=== PATIENT | female | born 1945 | race Caucasian/White ===

== ENCOUNTER 2020-05-19 14:05 | Emergency (ER) | payer MEDICARE, OTHER, SELFPAY ==
[2020-05-19] VITALS (8 sets, daily range): BP systolic 178–215; BP diastolic 90–121; PULSE 58–79; RESP 18–24; TEMP 36.6; O2SAT 96–97; BMI 29.2
[2020-05-19 15:10] LABS: Alanine Aminotransferase 17 IU/L (<35); Albumin 4.3 g/dL (3.5-5.0); Albumin Globulin Ratio 1.3 (1.0-2.8); Alkaline Phosphatase 93 U/L (38-126); Aspartate Aminotransferase 26 IU/L (14-36); BUN Creatinine Ratio 18.1 (6-22); Bilirubin Total 0.3 mg/dL (0.2-1.3); Blood Urea Nitrogen 13 mg/dL (7-17); Calcium 9.4 mg/dL (8.4-10.2); Carbon Dioxide 31 mmol/L (22-32); Chloride 105 mmol/L (98-107); Creatine Kinase 89 U/L (30-135); Estimated Glomerular Filt Rate > 60.0 mL/min (>60); Globulin 3.2 g/dL (1.7-4.1); Glucose 91 mg/dL (80-110); HEMOLYSIS < 15 (0-50); Lipase 85 U/L (23-300); Potassium 3.7 mmol/L (3.4-5.1); Sodium 140 mmol/L (137-145); Total Protein 7.5 g/dL (6.3-8.2)
[2020-05-19 15:14] LABS: Add Manual Diff / Slide Review NO; Basophils Absolute Auto 0 /uL (0-100); Basophils Percent Auto 0.8 % (0-2); Eosinophils Absolute Auto 200 /uL (0-450); Eosinophils Percent Auto 3.4 % (2-4); Hematocrit 40.8 % (36-46); Hemoglobin 13.9 g/dL (12.0-16.0); Lymphocytes Absolute Auto 1600 /uL (1100-4500); Lymphocytes Percent Auto 28.7 % (25-40); Mean Corpuscular HGB Conc 34.1 % (30-36); Mean Corpuscular Hemoglobin 31.1 PG (26-34); Mean Corpuscular Volume 91.1 fL (80-100); Monocytes Absolute Auto 400 /uL (0-900); Monocytes Percent Auto 6.8 % (3-14); Neutrophils Absolute Auto 3400 /uL (1500-7000); Neutrophils Percent Auto 60.3 % (50-75); Platelet Count 299 X10^3/uL (150-400); Red Blood Cell Count 4.48 X10^6/uL (4.0-5.2); Red Cell Distribution Width 12.6 % (11.6-14.8); White Blood Cell Count 5.6 X10^3/uL (4.5-11.0)
[2020-05-19 15:21] LABS: Troponin I < 0.012 ng/mL (0.01-0.034)
--- NOTE | 2020-05-19 15:23 | ED.GENADULT ---
HPI - General Adult General Chief complaint: Weakness Stated complaint: FATIGUE Time Seen by Provider: 05/19/20 14:19 Source: patient Mode of arrival: Ambulatory Limitations: no limitations History of Present Illness HPI narrative: Patient is a 75-year-old female with a history of hypertension who is not currently on any hypertensive medicines here for evaluation of fatigue. She states that several months ago she was having episodes of fatigue and was seen by her primary doctor. She states that her primary doctor thought maybe she was having irregular heart rhythm so a Holter monitor was ordered. She is currently wearing a Holter monitor however she states that it was approximately 6 weeks after this was ordered before she received in the mail. She has 3 days left on the monitor before she is to return it. Also at this visit her primary doctor took her off of all of her blood pressure medications. She was on lisinopril and hydrochlorothiazide. Patient is unsure as to why he did this other than him stating that he wanted to see what her ?baseline heart status ?his off of these medications. She was not told to take her blood pressure at home but she has been doing so. Over the past several days and weeks her blood pressures have ranged anywhere from the 08/29 systolic to the 180s systolic with the majority the time being greater than 150. She denies any other associated symptoms except for the fatigue. Related Data Home Medications Medication Instructions Recorded Confirmed hydrochlorothiazide 12.5 mg PO QAM 05/19/20 05/19/20 levothyroxine 125 mcg PO QAM 05/19/20 05/19/20 lisinopril 10 mg PO DAILY 05/19/20 05/19/20 Allergies Allergy/AdvReac Type Severity Reaction Status Date / Time latex Allergy Mild RASH Verified 05/19/20 14:18 rofecoxib Allergy Mild RASH Verified 05/19/20 14:18 Review of Systems Constitutional Constitutional: Denies daytime sleepiness, Reports difficulty sleeping, Reports fatigue, Denies fever(s), Denies frequent falls, Denies headache(s), Reports lethargy, Reports malaise and Denies weakness Eyes Eyes: Denies change in vision ENT Ears, Nose, Mouth, and Throat: Denies vertigo, Denies headache(s), Denies sinus pain and Denies sore throat Cardiovascular Cardiovascular: Denies chest pain and Denies dyspnea Respiratory Respiratory: Denies cough and Denies dyspnea Gastrointestinal Gastrointestinal: Denies abdominal pain, Denies nausea and Denies vomiting Genitourinary Genitourinary: Denies dysuria Genitourinary: Denies dysuria Musculoskeletal Musculoskeletal: Denies arthralgias and Denies myalgias Integumentary/Breasts Skin/Breast: Denies lesions and Denies rash Neurologic Neurologic: Denies behavioral changes, Denies confusion, Denies vertigo, Denies frequent falls, Denies headache(s) and Denies weakness Psychiatric Psychiatric: Denies behavioral changes and Denies confusion Endocrine Endocrine: Reports fatigue Hematologic/Lymphatic Hematologic/Lymphatic: Denies easy bleeding and Denies easy bruising Allergic/Immunologic Allergic/Immunologic: Denies urticaria Patient History Medical History Hypertension (Inactive) Social History Smoking Status: Unknown if ever smoked Smoking Status: Unknown if ever smoked alcohol intake frequency: holidays/special occasions only Substance Use Type: does not use Exam Initial Vital Signs Initial Vital Signs: Vital Signs Temperature 97.8 F 05/19/20 14:18 Pulse Rate 75 05/19/20 14:18 Respiratory Rate 24 05/19/20 14:18 Blood Pressure 215/121 H 05/19/20 14:18 Pulse Oximetry 97 05/19/20 14:18 Const General: cooperative, comfortable and well developed Limitations: mental status not altered HENTX Head: normal to inspection and normocephalic Resp Effort & Inspection: normal respiratory effort Auscultation: clear to auscultation bilaterally Cardio Rate: regular rate Rhythm: regular rhythm GI Inspection: non-distended Palpation: soft Skin Lesions: no lesions Rashes: no rashes Neuro General: patient alert, patient awake and patient oriented x3 Cognition: normal cognition Speech: speech normal Motor: muscle tone normal throughout Sensory Exam: no sensory deficits noted Extrem General: normal to inspection and capillary refill normal Psych Appearance: grossly normal and well kempt Scores GCS Jeannine coma scale eye opening: Spontaneous [place] coma scale verbal response: Orientated [place] coma scale motor response: Obey commands [place] coma scale total score: 15 Course Orders Ordered: ED Orders 05/19/20 14:20 EKG-12 Lead Stat 05/19/20 14:48 Complete Blood Count AUTO DIFF Stat Comprehensive Metabolic Panel Stat Lipase Stat TSH w/ Reflex to FT4 Stat Troponin & CK Cardiac Panel Stat Vital Signs Vital signs: Vital Signs - 8 hr 05/19/20 14:18 05/19/20 14:49 05/19/20 15:00 Temperature 97.8 F Pulse Rate 75 58 L 61 Respiratory Rate 24 22 23 Blood Pressure 215/121 H 181/90 H Pulse Oximetry 97 97 96 05/19/20 15:34 05/19/20 15:35 05/19/20 15:45 Temperature Pulse Rate 79 62 62 Respiratory Rate 19 21 21 Blood Pressure 196/94 H 178/95 H Pulse Oximetry 97 97 97 05/19/20 16:00 05/19/20 16:16 Temperature Pulse Rate 65 67 Respiratory Rate 20 18 Blood Pressure 180/104 H 190/115 H Pulse Oximetry 97 97 Medical Decision Making Lab Data Lab results reviewed: Yes I reviewed the patient's lab results. Result diagrams: 05/19/20 14:48 05/19/20 14:48 Labs: Lab Results 05/19/20 05/19/20 05/19/20 Range/Units 14:48 14:48 14:48 WBC 5.6 (4.5-11.0) X10^3/uL RBC 4.48 (4.0-5.2) X10^6/uL Hgb 13.9 (12.0-16.0) g/dL Hct 40.8 (36-46) % MCV 91.1 (80-100) fL MCH 31.1 (26-34) PG MCHC 34.1 (30-36) % RDW 12.6 (11.6-14.8) % Plt Count 299 (150-400) X10^3/uL Neut % (Auto) 60.3 (50-75) % Lymph % (Auto) 28.7 (25-40) % [place] % (Auto) 6.8 (3-14) % Eos % (Auto) 3.4 (2-4) % Baso % (Auto) 0.8 (0-2) % Neut # (Auto) 3400 (4626-4846) /uL Lymph # (Auto) 1600 (1335-0841) /uL [place] # (Auto) 400 (0-900) /uL Eos # (Auto) 200 (0-450) /uL Baso # (Auto) 0 (0-100) /uL Sodium 140 (137-145) mmol/L Potassium 3.7 (3.4-5.1) mmol/L Chloride 105 (98-107) mmol/L Carbon Dioxide 31 (22-32) mmol/L BUN 13 (7-17) mg/dL Creatinine 0.72 (0.52-1.04) mg/dL Estimated GFR > 60.0 (>60) mL/min BUN/Creatinine Ratio 18.1 (6-22) Glucose 91 (80-110) mg/dL Calcium 9.4 (8.4-10.2) mg/dL Total Bilirubin 0.3 (0.2-1.3) mg/dL AST 26 (14-36) IU/L ALT 17 (<35) IU/L Alkaline Phosphatase 93 (38-126) U/L Total Creatine Kinase 89 (30-135) U/L CK-MB (CK-2) TNP CK-MB (CK-2) Rel Index TNP Troponin I < 0.012 (0.01-0.034) ng/mL Total Protein 7.5 (6.3-8.2) g/dL Albumin 4.3 (3.5-5.0) g/dL Globulin 3.2 (1.7-4.1) g/dL Albumin/Globulin Ratio 1.3 (1.0-2.8) Lipase 85 (23-300) U/L TSH 1.83 (0.47-4.68) uIU/mL Urine Dip Bedside Urine Glucose Negative Bedside Urine Bilirubin - Negative Bedside Urine Ketone - Negative Urine Specific [place] 1.015 Bedside Urine Occult Blood - Negative Bedside Urine pH 7.5 Bedside Urine Protein - Negative Bedside Urine Urobilinogen - Negative Bedside Urine Nitrite - Negative Bedside Urine Leukocytes - Negative Esterase Point of care testing: Urine Dip Bedside Urine Glucose Negative Bedside Urine Bilirubin - Negative Bedside Urine Ketone - Negative Urine Specific [place] 1.015 Bedside Urine Occult Blood - Negative Bedside Urine pH 7.5 Bedside Urine Protein - Negative Bedside Urine Urobilinogen - Negative Bedside Urine Nitrite - Negative Bedside Urine Leukocytes - Negative Esterase ECG Data Attestation: I personally reviewed and interpreted this ECG as follows: Prior ECG tracings: not available for review Interpretation: Sinus rhythm Ventricular rate is 61 Normal axis Normal QRS LVH Normal QTC No ST T wave changes MDM Narrative Medical decision making narrative: Patient's labs are unremarkable. TSH is unremarkable. EKG is unremarkable. Unsure the exact etiology of for her fatigue however does not appear to be an emergent situation. She was hypertensive here in the ER. Had discussion with her regarding her blood pressure medicines. I informed her that I am unsure as to why her doctor would have her stop the blood pressure medications that she was on as they would not likely effect any potential arrhythmia. Patient stated that she agrees with this in like to start back on her medicines. She already has these medicines at home. She will start on 1 of them and then a week later started on the others to avoid any potential hypotension issues. She has no fevers. No indication for any antibiotics. She is going to contact her primary provider for follow-up. She expressed understanding and agreement. Discharge Plan Departure Patient Disposition: Home Clinical Impression: Hypertension Fatigue Qualifiers: Fatigue type: unspecified Qualified Code(s): R53.83 - Other fatigue Discharge Date/Time: 05/19/20 16:49 Instructions: Essential Hypertension, DI for Fatigue Activity Restrictions/Additional Instructions: I do recommend that you start back on your blood pressure medications like we discussed. Keep all of your scheduled medical appointments with your primary provider and also with regard to your monitor that you are currently wearing. Return to the emergency department for any new or worsening symptoms Prescriptions: No Action levothyroxine 125 mcg tablet 125 mcg PO QAM RF: 0 lisinopril 10 mg tablet 10 mg PO DAILY RF: 0 hydrochlorothiazide 12.5 mg capsule 12.5 mg PO QAM RF: 0 Referrals: Shilpa Cuba ARNP [Primary Care Provider] -
[2020-05-19 15:43] LABS: TSH w/ Reflex to FT4 1.83 uIU/mL (0.47-4.68)
== END 2020-05-19 16:49 | disposition home or self-care (01) ==
PROVIDERS: Emergency Provider Emergency Medicine; Family Provider Nurse Practitioner; PCP Nurse Practitioner
DX: I10 Essential (primary) hypertension (principal); R53.83 Other fatigue; R07.9 Chest pain, unspecified
CPT/HCPCS: 36415; 80053; 81003; 82550; 83690; 84443; 84484; 85025; 93005; 93010; 99283; 99284

== ENCOUNTER 2023-04-14 19:52 | Observation (INO) | payer MEDICARE, OTHER, SELFPAY ==
[2023-04-14 20:10] VITALS: BP 195/87; PULSE 65; RESP 17; TEMP 36.9; O2SAT 98; BMI 28.3
--- NOTE | 2023-04-14 20:18 | DI.RAD.S_ITS ---
PROCEDURE: XR CHEST 1V INDICATIONS: chest pain TECHNIQUE: One view of the chest was acquired. COMPARISON: None. FINDINGS: Surgical changes and devices: None. Lungs and pleura: Lungs are clear. No pleural effusions or pneumothorax. Mediastinum: The cardiac contours are within normal limits. The aorta demonstrates calcification and tortuosity. Bones and chest wall: No suspicious bony lesions. Overlying soft tissues appear unremarkable. IMPRESSION: Portable chest within normal limits for age. Dictated by: Lv Medina M.D. on 04/14/2023 at 20:14 Approved by: Lv Medina M.D. on 04/14/2023 at 20:14
[2023-04-14 20:36] LABS: Add Manual Diff / Slide Review NO; Basophils Absolute Auto 100 /uL (0-100); Eosinophils Absolute Auto 100 /uL (0-450); Eosinophils Percent Auto 1.6 % (2-4); Hematocrit 38.2 % (36-46); Hemoglobin 13.1 g/dL (12.0-16.0); Lymphocytes Absolute Auto 1300 /uL (1100-4500); Lymphocytes Percent Auto 22.9 % (25-40); Mean Corpuscular HGB Conc 34.2 % (30-36); Mean Corpuscular Hemoglobin 30.8 PG (26-34); Mean Corpuscular Volume 89.8 fL (80-100); Monocytes Absolute Auto 300 /uL (0-900); Monocytes Percent Auto 5.6 % (3-14); Neutrophils Absolute Auto 4000 /uL (1500-7000); Neutrophils Percent Auto 68.9 % (50-75); Platelet Count 292 X10^3/uL (150-400); Red Blood Cell Count 4.26 X10^6/uL (4.0-5.2); Red Cell Distribution Width 13.1 % (11.6-14.8); White Blood Cell Count 5.8 X10^3/uL (4.5-11.0)
[2023-04-14 20:43] LABS: Prothrombin Time 11.1 SECONDS (10.1-12.7)
[2023-04-14 20:46] LABS: PTT Partial Thromboplastin Tim 30 SECONDS (26-36)
[2023-04-14 20:48] LABS: Alanine Aminotransferase 22 IU/L (<35); Albumin 4.4 g/dL (3.5-5.0); Albumin Globulin Ratio 1.4 (1.0-2.8); Alkaline Phosphatase 95 U/L (38-126); Aspartate Aminotransferase 27 IU/L (14-36); Bilirubin Total 0.4 mg/dL (0.2-1.3); Blood Urea Nitrogen 14 mg/dL (7-17); Carbon Dioxide 29 mmol/L (22-32); Chloride 102 mmol/L (98-107); Creatine Kinase 141 U/L (30-135); Estimated Glomerular Filt Rate > 60 mL/min (>60); Globulin 3.2 g/dL (1.7-4.1); Glucose 156 mg/dL (80-110); HEMOLYSIS < 15 (0-50); Lipase 107 U/L (23-300); Magnesium 2.1 mg/dL (1.6-2.3); Potassium 3.7 mmol/L (3.4-5.1); Sodium 137 mmol/L (137-145); Total Protein 7.6 g/dL (6.3-8.2)
[2023-04-14 20:59] LABS: Troponin I < 0.012 ng/mL (0.01-0.034)
--- NOTE | 2023-04-14 22:40 | ED_ITS ---
HPI - Syncope General Chief Complaint: Syncope Stated Complaint: Fall, Head inj, Aspirin Time Seen by Provider: 04/14/23 19:58 Source: patient Mode of arrival: Ambulatory Limitations: no limitations History of Present Illness HPI narrative: 78-year-old female nonsmoker with history of hypertension and hypothyroid p resents for evaluation of an unprovoked syncopal episode and head injury while on aspirin. She states that she was in her normal state of health and had a productive morning. She denies any chest pain or shortness of breath. She is had no nausea or vomiting. She denies any change in medications or diet. She was walking from her house to the drive way and had a brief episode of dizziness followed by a witnessed episode of syncope lasting upwards of 10 seconds. She woke up quickly but unfortunately has a consequence of the fall she did strike the back of her head. She denies any blurred vision or trouble with speech. She denies any neck pain. She had not been straining on the toilet, denied any pain prior to her episode Related Data Home Medications Medication Instructions Recorded Confirmed levothyroxine 125 mcg tablet 125 mcg PO QAM 05/19/20 05/19/20 Adult Aspirin EC Low Strength 81 mg DAILY 04/15/23 04/15/23 Antivert 25 mg TID PRN Dizziness 04/15/23 04/15/23 atorvastatin 20 mg BEDTIME 04/15/23 04/15/23 donepezil 5 mg BEDTIME 04/15/23 04/15/23 losartan 100 mg BEDTIME 04/15/23 04/15/23 Allergies Allergy/AdvReac Type Severity Reaction Status Date / Time latex Allergy Mild RASH Verified 05/19/20 14:18 rofecoxib Allergy Mild RASH Verified 05/19/20 14:18 Sulfa (Sulfonamide Allergy Verified 04/14/23 20:10 Antibiotics) Review of Systems Review of Systems Narrative: GENERAL: Denies chills, fatigue, malaise, fever, sweats. HEENT: Denies sinus pain, ear pain, sore throat, difficulty swallowing, dizziness. RESPIRATORY: Denies dyspnea, cough, wheezing, hemoptysis, sputum. CARDIOVASCULAR: See HPI GASTROINTESTINAL: Denies nausea, vomiting, abdominal pain, diarrhea, constipation, melena. : Denies dysuria, frequency, incontinence, hematuria, urinary retention. MUSCULOSKELETAL: denies weakness, joint pain, or bony pain SKIN: Denies rash, skin lesions, or other NEUROLOGIC: Denies weakness, headache, numbness, change in speech, confusion, seizures, incoordination. PSYCHIATRIC: No concerning psychosocial issues. 12 point review of systems is negative except for those stated above Patient History Medical History Hypertension Social History Smoking Status: Never smoker Smoking Status: Never smoker alcohol intake frequency: 0-2 drinks per day Substance Use Type: does not use Exam Narrative Exam Narrative: GENERAL: [78] year old patient appears stated age. Well-developed patient, in mild distress. GCS 15 HEAD: Superficial abrasion on the occiput, no evidence of depressed skull fracture. EYES: Pupils equal round and reactive. Extraocular motions intact. No scleral icterus. No injection or drainage. ENT: Nose without bleeding, purulent drainage. Throat without erythema, tonsillar hypertrophy or exudate. Airway patent. NECK: Trachea midline. Non tender CARDIOVASCULAR: Regular rate and rhythm without murmurs, gallops, or rubs. RESPIRATORY: Clear to auscultation. Breath sounds equal bilaterally. No wheezes, rales, or rhonchi. GASTROINTESTINAL: Abdomen soft, non-tender, nondistended. EXTREMITIES: No edema or joint tenderness. BACK: Nontender without deformity or crepitance. No flank tenderness. NEURO: AOx3. SKIN: No rash or erythema of visible areas Initial Vital Signs Initial Vital Signs: Vital Signs Temperature 98.4 F 04/14/23 20:10 Pulse Rate 65 04/14/23 20:10 Respiratory Rate 17 04/14/23 20:10 Blood Pressure 195/87 H 04/14/23 20:10 Pulse Oximetry 98 04/14/23 20:10 Oxygen Delivery Method Room Air 04/14/23 20:10 Course Orders Ordered: ED Orders 04/14/23 20:15 EKG-12 Lead Stat 04/14/23 20:18 XR chest 1V Stat 04/14/23 20:30 Complete Blood Count AUTO DIFF Stat Comprehensive Metabolic Panel Stat Lipase Stat Magnesium Stat PTT Partial Thromboplastin [place] Stat Prothrombin Time INR Stat Troponin & CK Cardiac Panel Stat 04/14/23 22:47 CT cervical spine wo con Stat CT head/brain wo con Stat Acetaminophen (Acetaminophen 325 Mg Tablet) 650 mg PO Q6H PRN PRN Reason: Fever/Mild Pain (1-3) Aspirin (Aspirin Ec 81 Mg Tablet) 81 mg PO DAILY NIVIA Atorvastatin Calcium (Atorvastatin 20 Mg Tablet) 20 mg PO BEDTIME NIVIA Donepezil HCl (Donepezil 5 Mg Tablet) 5 mg PO BEDTIME NIVIA Hydromorphone HCl (Hydromorphone 2 Mg Tablet) 2 mg PO Q4HR PRN PRN Reason: Pain, Moderate (4-6) Levothyroxine Sodium (Levothyroxine 125 Mcg Tablet) 125 mcg PO 0600 NIVIA Losartan Potassium (Losartan 50 Mg Tablet) 100 mg PO BEDTIME NIVIA Meclizine HCl (Meclizine Hcl 12.5 Mg Tablet) 25 mg PO TID PRN PRN Reason: dizziness Naloxone HCl (Naloxone 0.4 Mg/Ml Vial) 0.2 mg IV Q2MIN PRN PRN Reason: Opiate Reversal Ondansetron HCl (Ondansetron 4 Mg Odt) 4 mg PO Q8HR PRN PRN Reason: Nausea And Vomiting Consultations Consultation #1: Dr. Jama (hospitalist) happy to accept Vital Signs Vital signs: Vital Signs - 8 hr 04/14/23 20:10 04/15/23 02:10 Temperature 98.4 F Pulse Rate 65 58 L Respiratory Rate 17 18 Blood Pressure 195/87 H 171/89 H Pulse Oximetry 98 98 Oxygen Delivery Method Room Air MDM - Syncope Lab Data 04/14/23 20:30 04/14/23 20:30 Labs: Lab Results 04/14/23 04/14/23 04/14/23 Range/Units 20:30 20:30 20:30 WBC 5.8 (4.5-11.0) X10^3/uL RBC 4.26 (4.0-5.2) X10^6/uL Hgb 13.1 (12.0-16.0) g/dL Hct 38.2 (36-46) % MCV 89.8 (80-100) fL MCH 30.8 (26-34) PG MCHC 34.2 (30-36) % RDW 13.1 (11.6-14.8) % Plt Count 292 (150-400) X10^3/uL Neut % (Auto) 68.9 (50-75) % Lymph % (Auto) 22.9 L (25-40) % [place] % (Auto) 5.6 (3-14) % Eos % (Auto) 1.6 L (2-4) % Baso % (Auto) 1.0 (0-2) % Neut # (Auto) 4000 (9937-8108) /uL Lymph # (Auto) 1300 (7120-0530) /uL [place] # (Auto) 300 (0-900) /uL Eos # (Auto) 100 (0-450) /uL Baso # (Auto) 100 (0-100) /uL PT 11.1 (10.1-12.7) SECONDS INR 1.0 (0.9-1.3) APTT 30 (26-36) SECONDS Sodium 137 (137-145) mmol/L Potassium 3.7 (3.4-5.1) mmol/L Chloride 102 (98-107) mmol/L Carbon Dioxide 29 (22-32) mmol/L BUN 14 (7-17) mg/dL Creatinine 0.70 (0.52-1.04) mg/dL Estimated GFR > 60 (>60) mL/min BUN/Creatinine Ratio 20.0 (6-22) Glucose 156 H (80-110) mg/dL Calcium 10.0 (8.4-10.2) mg/dL Magnesium 2.1 (1.6-2.3) mg/dL Total Bilirubin 0.4 (0.2-1.3) mg/dL AST 27 (14-36) IU/L ALT 22 (<35) IU/L Alkaline Phosphatase 95 (38-126) U/L Total Creatine Kinase 141 H (30-135) U/L Troponin I < 0.012 (0.01-0.034) ng/mL Total Protein 7.6 (6.3-8.2) g/dL Albumin 4.4 (3.5-5.0) g/dL Globulin 3.2 (1.7-4.1) g/dL Albumin/Globulin Ratio 1.4 (1.0-2.8) Lipase 107 (23-300) U/L MDM Narrative Medical decision making narrative: [78] year old patient presents with episode of unprovoked syncope and head in jury Multiple etiologies for patient's symptoms considered including, but not limited to: [Cardiac arrhythmia versus other] Prior Charts reviewed in our EMR Primary Historian: patient Labs reviewed and interpreted by myself: No leukocytosis or left shift, no signs of anemia, electrolytes and renal function within normal limits Imaging reviewed: CT Head, C Spine without acute findings Consultations: Dr. Evita love Patient had been in normal state of health and had a 2nd episode of syncope that was witnessed resulting in head injury. There are no clear precipitating events such as change in position, pain response, straining on the toilet etc.. This unprovoked syncope requires hospitalization for evaluation of possible arrhythmia with telemetry monitoring, possible echo and other as determined by hospitalist service. Patient understands and agrees with the diagnosis and plan Discharge Plan Departure Patient Disposition: Admitted As Inpatient Clinical Impression: Syncope and collapse Admit Date/Time: 04/15/23 02:18 Admit Provider: Austin Yeboah
--- NOTE | 2023-04-14 22:47 | DI.CT.S_ITS ---
PROCEDURE: CT HEAD/BRAIN WO CON INDICATIONS: Fall, head injury, on aspirin. TECHNIQUE: Noncontrast 4.5 mm thick angled axial sections acquired from the foramen magnum to the vertex, with coronal and sagittal reformats. For radiation dose reduction, the following was used: automated exposure control, adjustment of mA and/or kV according to patient size. COMPARISON: [facility], CT, CT CERVICAL SPINE WO CON, 04/14/2023, 22:52. [facility], CR, XR CHEST 1V, 04/14/2023, 20:36. [facility], MR, MR BRAIN WITHOUT CONTRAST, 09/10/2020, 13:10. FINDINGS: Image quality: Excellent. CSF spaces: Basal cisterns are patent. No extra-axial fluid collections. The ventricles are symmetric in size and shape. Brain: No intracranial bleeds or masses. There is cerebral volume loss for age, with resultant ventricular and sulcal prominence. There are periventricular and deep white matter chronic small vessel ischemic changes. There is intracranial internal carotid artery atherosclerosis. There is stable volume loss seen along the right occipital region. Skull and face: Calvarium and visualized facial bones appear intact, without suspicious lesions. Sinuses: Visualized sinuses and mastoids are clear. IMPRESSION: No acute intracranial hemorrhage is seen. No acute intracranial process is seen. Stable volume loss seen involving the right occipital region. Dictated by: Lv Medina M.D. on 04/14/2023 at 22:22 Approved by: Lv Medina M.D. on 04/14/2023 at 22:24
--- NOTE | 2023-04-14 22:47 | DI.CT.S_ITS ---
PROCEDURE: CT CERVICAL SPINE WO CON INDICATIONS: Syncope with head injury. TECHNIQUE: Noncontrast 3 mm thick sections acquired from the skull base to the T4 level. Sagittal and coronal reformats were then constructed. For radiation dose reduction, the following was used: automated exposure control, adjustment of mA and/or kV according to patient size. COMPARISON: [facility], CR, XR CHEST 1V, 04/14/2023, 20:36. [facility], CT, CT HEAD/BRAIN WO CON, 04/14/2023, 22:52. FINDINGS: Image quality: There is artifact associated with the metallic dental work. This examination is somewhat limited by quantum mottle artifact. Bones: No fractures or dislocations. Visualized superior ribs are intact. Focal degenerative change is seen involving the C1-C2 interface anteriorly. There is moderate disc space narrowing seen at C2-C3 and C3-C4, with at least moderate disc space narrowing seen at C4-C5 and C5-C6. Moderate disc space narrowing is seen at C6-C7. At least partially bridging anterior osteophytes can be seen at several levels, although worst from C4 through C7. Soft tissues: Prevertebral soft tissues are normal in thickness. No paravertebral hematomas. No apical pneumothoraces. Incidental note is made of an aberrant right subclavian artery. IMPRESSION: Negative for acute fracture. Cervical spine degenerative changes are seen, which are worst inferiorly. Additional findings: Aberrant right subclavian artery Dictated by: Lv Medina M.D. on 04/14/2023 at 22:24 Approved by: Lv Medina M.D. on 04/14/2023 at 22:26
[2023-04-15 02:10] VITALS: BP 171/89; PULSE 58; RESP 18; O2SAT 98
--- NOTE | 2023-04-15 02:34 | DI.ECHO.S_ITS ---
[facility]+ [facility] +---------+ : : [address] : : : : [id number] : : : : Phone: [phone]+ Echocardiogram Report + + :Name: CONNOR REILLY Study Date: 04/15/2023 Height: 59 in : :[facility] ReadingLocation: Weight: 140 lb : : Gender: Female BSA: 1.6 m2 : :: 1945 Age: 78 yrs BP: 142/75 mmHg: :Reason For Study: SYNCOPE, HYPERTENSION : :Ordering Physician: DENISE, : :ANGELA Girard MD Performed By: Radha Rojas : :Referring: ANGELA WALKER MD : + + Interpretation Summary 1) Normal left ventricular thickness, size, wall motion, and systolic function (EF 60-65%). 2) Normal right ventricular size and function. 3) There is mild aortic stenosis (valve area 1.5cm2, mean gradient 14.5mmHg, severity ratio 0.46). 4) No prior Echo available for comparison. Procedure: A two-dimensional transthoracic echocardiogram with color flow and Doppler was performed. The study quality was technically adequate. There is no prior echocardiogram noted for this patient. The patient was in sinus rhythm with heart rates between 64-74 bpm during the exam. Left Ventricle: The left ventricle is normal in size and wall thickness. The ejection fraction is estimated to be 60-65%. Left ventricular systolic function appears normal without focal wall motion abnormalities. Diastolic parameters suggest a pseudonormalization pattern, consistent with probable elevated filling pressures. Right Ventricle: The right ventricle is normal in size and function. Atria: The left atrium is moderately dilated. Right atrial size is normal. There is no Doppler evidence for an interatrial shunt. Mitral Valve: There is mild mitral annular calcification. The mitral valve leaflets appear borderline thickened, but open well. There is no mitral regurgitation. Aortic Valve: The aortic valve is mildly calcified. There is mildly reduced leaflet mobility. The aortic valve is trileaflet. There is mild aortic stenosis. The peak aortic velocity is 2.3 m/sec. The aortic valve mean gradient is 15 mmHg. The calculated aortic valve area is 1.5 cm2. No aortic regurgitation is present. Tricuspid Valve: The tricuspid valve is normal in structure and function. There is trace tricuspid regurgitation. Pulmonary artery pressures cannot be estimated because of the lack of a measurable TR jet velocity. Pulmonic Valve: The pulmonic valve is not well visualized. There is trace pulmonic regurgitation. Great Vessels: The aortic root is normal size. The dimensions of the ascending aorta are normal. The IVC is of normal diameter and collapses greater than 50% with a sniff. This suggests a low right atrial pressure of 3 mm Hg. Pericardium/ Pleura There is no pericardial effusion. There is no pleural effusion. MMode/2D Measurements & Calculations LVIDd: 4.8 cm LVOT diam: 2.0 cm LVIDs: 2.9 cm Ao root diam: 2.8 cm FS: 38.7 % asc Aorta Diam: 3.8 cm EPSS: 0.74 cm Ao Arch Diam (Prox Trans): 3.6 cm IVSd: 1.1 cm LVPWd: 0.92 cm LV mcbride. diameter/BSA (cm/m^2): 3.0 LV sys. diameter/BSA (cm/m^2): 1.9 LA A2 area: 19.8 cm2 RA long axis: 5.0 cm LA A4 area: 19.5 cm2 RA area: 15.4 cm2 LA length (vol): 5.1 cm RA vol: 39.8 ml LA vol: 64.3 ml RA : 25.1 ml/m2 LA vol index: 40.6 ml/m2 IVC diam: 0.97 cm RVD1 (basal): 3.9 cm RVD2 (mid): 2.9 cm TAPSE: 2.3 cm Doppler Measurements & Calculations Ao V2 max: 235.2 cm/sec LVOT Max Lauro: 93.6 cm/sec Ao V2 mean: 161.6 cm/sec LV V1 max P.5 mmHg Ao max P.1 mmHg LV V1 VTI: 22.4 cm Ao mean P.5 mmHg NILAY(I,D): 1.5 cm2 Ao V2 VTI: 49.1 cm NILAY(V,D): 1.3 cm2 sev ratio: 0.46 NILAY indexed to BSA (cm^2/m^2): 0.92 MV E max lauro: 70.7 cm/sec PA V2 max: 78.1 cm/sec MV A max lauro: 85.0 cm/sec PA V2 mean: 57.0 cm/sec MV E/A: 0.83 PA mean P.4 mmHg Med Peak E' Lauro: 3.5 cm/sec PA pr(Accel): 17.3 mmHg E/E' med: 20.0 Lat Peak E' Lauro: 7.7 cm/sec E/E' lat: 9.2 E/e' average: 14.6 MV dec time: 0.28 sec SV([facility]): 71.6 ml Reading Physician:11:10 AM
--- NOTE | 2023-04-15 02:38 | PM.HP.1 ---
History of Present Illness History of Present Illness Date Patient Seen: 04/15/23 Chief complaint: Fall, Head inj, Aspirin Narrative: 78 y/o with PMH of HTN, HLD, hypothyroidism, mild cognitive / memory deficits, episodic dizziness, presented to the ED after she sustained 10 seconds-long syncope. She was walking outside and suddenly felt dizzy, lightheaded. As she fell backwards, she hit the ground with the back of head w/o significant injury. ED workup - CXR, CT CS , CTH, labs - unrevealing, apart from brain atrophy. Notably hypertensive, w/o evidence of arrhythmias on a monitor. [facility] Medical History (Updated 04/15/23 @ 05:46 by Autsin Yeboah MD) Hypertension Hypothyroidism Memory loss Social History household members: significant other Smoking Status: Never smoker alcohol intake: current Meds Home Medications and Allergies Home Medications Medication Instructions Recorded Confirmed Type levothyroxine 125 mcg tablet 125 mcg PO QAM 05/19/20 04/15/23 History Adult Aspirin EC Low Strength 81 mg DAILY 04/15/23 04/15/23 History Antivert 25 mg TID PRN Dizziness 04/15/23 04/15/23 History atorvastatin 20 mg BEDTIME 04/15/23 04/15/23 History donepezil 5 mg BEDTIME 04/15/23 04/15/23 History losartan 100 mg BEDTIME 04/15/23 04/15/23 History Allergies Allergy/AdvReac Type Severity Reaction Status Date / Time latex Allergy Mild RASH Verified 05/19/20 14:18 rofecoxib Allergy Mild RASH Verified 05/19/20 14:18 Sulfa (Sulfonamide Allergy Verified 04/14/23 20:10 Antibiotics) Review of Systems Constitutional Comments: w/o fever, chills, sweats, weight loss, malaise, generalized weakness Eyes Comments: w/o recent vision changes Cardiovascular Comments: w/o palpitations or chest pain Respiratory Comments: w/o shortness of breath or cough Gastrointestinal Comments: w/o complaints Genitourinary Comments: w/o dysuria Musculoskeletal Comments: w/o myalgia or arthralgia Neurologic Comments: w/o focal weakness or numbness. w/o headache, minor posterior head tenderness from the GLF memory deficits episodic dizziness, used Meclizine before Endocrine Comments: w/o recent significant weight changes, cold intolerance, polyuria or polydipsia Hematologic/Lymphatic Comments: w/o bleeding or bruising Exam Vital Signs (past 8 hours): - 04/14/23 20:10 04/15/23 02:10 Temperature 98.4 F Pulse Rate 65 58 L Respiratory Rate 17 18 Blood Pressure 195/87 H 171/89 H Pulse Oximetry 98 98 Oxygen Delivery Method Room Air Oxygen Delivery Method Room Air Const Other: laying in bed in no distress, her daughter is at the bedside Eyes Conjunctivae: conjunctivae normal Pupils: normal by confrontation EOM: EOM intact bilaterally Neck Neck: normal visual inspection and full ROM Resp Effort & Inspection: normal respiratory effort Auscultation: clear to auscultation bilaterally Cardio Rhythm: regular rhythm Heart Sounds: S1 normal and S2 normal GI Inspection: normal to inspection Skin General: no rashes or lesions noted Neuro General: patient alert, patient oriented x3 and no focal motor deficits Extrem General: normal to inspection and full ROM Objective Imaging Chest x-ray: My impression: w/o infiltrates Radiologist's impression: unrevealing CT scan - head: My impression: w/o evidence of bleeding Radiologist's impression: volume loss in occipital lobe Labs 04/14/23 20:30 04/14/23 20:30 Labs: Laboratory Results - last 24 hr 04/14/23 04/14/23 04/14/23 20:30 20:30 20:30 WBC 5.8 RBC 4.26 Hgb 13.1 Hct 38.2 MCV 89.8 MCH 30.8 MCHC 34.2 RDW 13.1 Plt Count 292 Neut % (Auto) 68.9 Lymph % (Auto) 22.9 L [place] % (Auto) 5.6 Eos % (Auto) 1.6 L Baso % (Auto) 1.0 Neut # (Auto) 4000 Lymph # (Auto) 1300 [place] # (Auto) 300 Eos # (Auto) 100 Baso # (Auto) 100 PT 11.1 INR 1.0 APTT 30 Sodium 137 Potassium 3.7 Chloride 102 Carbon Dioxide 29 BUN 14 Creatinine 0.70 Estimated GFR > 60 BUN/Creatinine Ratio 20.0 Glucose 156 H Calcium 10.0 Magnesium 2.1 Total Bilirubin 0.4 AST 27 ALT 22 Alkaline Phosphatase 95 Total Creatine Kinase 141 H Troponin I < 0.012 Total Protein 7.6 Albumin 4.4 Globulin 3.2 Albumin/Globulin Ratio 1.4 Lipase 107 Assessment & Plan Assessment and plan (1) Syncope and collapse: Status: Acute (2) Hypertension: Qualifiers: Hypertension type: unspecified Qualified Code(s): I10 - Essential (primary) hypertension Status: Acute (3) Ground-level fall: Status: Acute (4) Hypothyroidism: Status: Acute (5) Memory loss: Status: Acute Plan 78 y/o, fully functional lady, with PMH of mild cognitive deficits, mainly memory loss, hypothyroidism, HTN, HLD, presented to ED after recurrent syncopal episode, GLF and minor head injury. Initial w/o unrevealing. Notably hypertensive. Placed in observation. Assessment & Plan narrative: 1. Syncope - front desk monitor - echo - donepezil discontinued 2. HTN - uncontrolled - continue home Losartan 100 mg daily, added prn iv hydralazine 3. GLF - minor tenderness of the back of her head - w/o significant injuries 4. Hypothyroidism - levothyroxine 5. Dementia - discontinuing Donepezil - can cause syncope DVT prophylaxis - SCDs
[2023-04-15 02:45] VITALS: BP 165/82; PULSE 60; RESP 18; TEMP 36.3; O2SAT 96
[2023-04-15 03:00] VITALS: BMI 28.3
[2023-04-15] MEDS: LEVOTHYROXINE 125 MCG TABLET PO (06:24)
[2023-04-15 08:00] VITALS: BP 142/75; PULSE 58; RESP 17; TEMP 36.1; O2SAT 97
[2023-04-15] MEDS: ACETAMINOPHEN 325 MG TABLET 650 MG PO (09:08)
[2023-04-15] MEDS: ASPIRIN EC 81 MG TABLET PO (09:08)
--- NOTE | 2023-04-15 09:30 | CM.DANOTE ---
DCP: Chart review for case, met with patient at bedside, they agree to case management assessment. Completed DCP assessment based on information available. Patient is a 78 year old admitted for ground level fall, head injury. Lives on [place] with significant other Lester who does all cooking, cleaning, shopping. 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 Plan: OBS for W/U, cardiac secondary to fall with LOC, syncope. PCP: prior Shilpa Granado Payer: Medicare DME: None DCP: Home, back to [place] with supportive family. Daughter at bedside states she is an RN. Grace Villar RN CM Discharge Planning/Care Management Advanced directive, confirm from FAMILY Start: 04/15/23 03:54 Freq: Q24H Status: Active Protocol: Document 04/15/23 03:54 (Rec: 04/15/23 04:54 [id number]) Advance Directive, confirm on record Time 03:30 Person contacted Nat (daughter) Copy received No CM Discharge Assessment Start: 04/15/23 09:24 Freq: Status: Active Protocol: Document 04/15/23 09:24 BQ (Rec: 04/15/23 09:25 BQ [id number]) Discharge Planning Assessment Assigned Physician/Allergy/Immunology Grace Villar RN CM Advance Directives? Yes Advance Directives on File No History Provided By Patient Has Patient been admitted in last 30 No days? Prior Living Arrangements House Household Members significant other Type of transporation used prior to Relies on Others admit Independent with ADL's Yes Is patient alert and oriented? Yes: Hx memory impairement Caregiver for Another No Barriers to Discharge No Discharge Plan Home Referrals Initiated None needed Whiteboard Updated in Patient Room with Yes name and ext. # of Physician/Allergy/Immunology Review Status In Process Next Review Type Continued Stay Review
[2023-04-15 12:00] VITALS: BP 137/75; PULSE 62; RESP 17; TEMP 36.2; O2SAT 96
[2023-04-15 14:31] LABS: Appearance Urine UA CLEAR; Bilirubin Urine UA NEGATIVE (NEGATIVE); Color Urine UA YELLOW; Glucose Urine UA NEGATIVE (Negative); Ketones Urine UA NEGATIVE (NEGATIVE); Leukocyte Esterase Urine UA TRACE (NEGATIVE); Nitrite Urine UA NEGATIVE (Negative); Occult Blood Urine UA NEGATIVE (Negative); Protein Urine UA NEGATIVE (Negative); Specific Gravity Urine UA <=1.005 (1.000-1.035); Urobilinogen Urine UA 0.2 E.U./dL (0.2)
--- NOTE | 2023-04-15 14:39 | PM.DS.1 ---
History of Present Illness History of Present Illness Chief complaint: Fall, Head inj, Aspirin Narrative: Per history and physical: 78 y/o with PMH of HTN, HLD, hypothyroidism, mild cognitive / memory deficits, episodic dizziness, presented to the ED after she sustained 10 seconds-long syncope. She was walking outside and suddenly felt dizzy, lightheaded. As she fell backwards, she hit the ground with the back of head w/o significant injury. ED workup - CXR, CT CS , CTH, labs - unrevealing, apart from brain atrophy. Notably hypertensive, w/o evidence of arrhythmias on a monitor. Discharge Providers Provider Date of admission: 04/15/23 02:18 Discharge Date: 04/15/23 Primary care physician: DORINDA Soares Discharge provider: Greta Burkett MD Summary Hospital Course Discharge Diagnosis: 1. Syncope 2. Hypertension 3. Chronic dizziness/vertigo 4. Cognitive deficits/memory loss 5. Hypothyroidism 6. Hyperlipidemia Hospital Course: Patient has been struggling with chronic episodic dizziness. It occurs typically without warning, often while she is already walking. She has had an extensive workup with Neurology, inclusive of MRIs. He has been seen by ENT for evaluation for Meniere's disease and that has been ruled out. She has had vestibular rehab treatment without success. She is had meclizine as empiric treatment for vertigo also without success. On the evening before admission, she was walking and developed acute onset of dizziness/vertigo. She fell backwards and hit her head. She presented to the emergency department. Chest x-ray was negative for acute injury or pulmonary process. Head and cervical spine CTs were also negative for acute abnormalities. She was admitted under observation status for monitoring overnight. She would no episodes on telemetry. Echocardiogram revealed normal LV thickness, size, wall motion, and systolic function with an EF of 60-65%. She would normal ventricular size and function. Mild aortic stenosis noted. UA was sent and is presently pending. She does not have any UTI symptoms. On exam, she did have a 3/6 systolic murmur heard best at the left upper sternal border. Upon examination of her carotids, she does have bruits bilaterally. It is unclear if this is radiation related to her aortic stenosis murmur. I suspect this to be the case. I did attempt to have a carotid ultrasound done during her hospitalization, but this will not be available for at least 48 hours. Patient lives on [address] and does not have imaging available there. She and her daughters were both comfortable with the plan to discharge home and follow-up as an outpatient for carotid ultrasound next week. Patient was ambulating safely prior to discharge with no significant symptoms. I did recommend consideration of a walker with a bench for use when she develops vertiginous symptoms. Status at Discharge Cognitive/behavioral status at discharge: at baseline, oriented Functional status at discharge: uses cane/walker Overall status at discharge: patient is progressing back to baseline Time Spent with Patient Time spent: Greater than 30 minutes Exam Vital Signs (past 8 hours): - 04/15/23 08:00 04/15/23 09:33 04/15/23 12:00 Temperature 97.0 F L 97.1 F L Pulse Rate 58 L 62 Respiratory Rate 17 17 Blood Pressure 142/75 H 137/75 Pulse Oximetry 97 96 Oxygen Delivery Method Room Air Oxygen Flow Rate 0 0 Oxygen Delivery Method Room Air Oxygen Flow Rate 0 Narrative Exam Narrative: GEN: Elderly female, very pleasant, Alert and oriented x 3, NAD HEENT:NC, Face symmetric CHEST: Respiratory excursions symmetric, CTAB CV: RRR, 3/6 systolic murmur heard best at the left sternal border, no rubs or gallops, radiation to bilateral carotids ABD: Soft, NT/ND, BT present in all 4 quadrants, no organomegaly or masses EXTR: warm, well perfused, no C/C/E SKIN: warm and dry, no rash NEURO: Alert and oriented x 3, nonfocal Objective Labs 04/14/23 20:30 04/14/23 20:30 Labs: Laboratory Results - last 24 hr 04/14/23 04/14/23 04/14/23 20:30 20:30 20:30 WBC 5.8 RBC 4.26 Hgb 13.1 Hct 38.2 MCV 89.8 MCH 30.8 MCHC 34.2 RDW 13.1 Plt Count 292 Neut % (Auto) 68.9 Lymph % (Auto) 22.9 L [place] % (Auto) 5.6 Eos % (Auto) 1.6 L Baso % (Auto) 1.0 Neut # (Auto) 4000 Lymph # (Auto) 1300 [place] # (Auto) 300 Eos # (Auto) 100 Baso # (Auto) 100 PT 11.1 INR 1.0 APTT 30 Sodium 137 Potassium 3.7 Chloride 102 Carbon Dioxide 29 BUN 14 Creatinine 0.70 Estimated GFR > 60 BUN/Creatinine Ratio 20.0 Glucose 156 H Calcium 10.0 Magnesium 2.1 Total Bilirubin 0.4 AST 27 ALT 22 Alkaline Phosphatase 95 Total Creatine Kinase 141 H Troponin I < 0.012 Total Protein 7.6 Albumin 4.4 Globulin 3.2 Albumin/Globulin Ratio 1.4 Lipase 107 [facility] Medical History (Updated 04/15/23 @ 05:46 by Austin Yeboah MD) Hypertension Hypothyroidism Memory loss Social History household members: significant other Smoking Status: Never smoker alcohol intake: current Discharge Plan Discharge Plan Patient Disposition: Home Provider Discharge Comment: You were admitted w/recurring dizziness and a fainting spell fortunately resulting in no significant injuries. Your echocardiogram revealed no concerning findings. You have some mild aortic stenosis (calcification on the valve), but that does not explain your symptoms. Per you and your families report, you have had extensive workup for these episodes of dizziness, including MRIs, ENT evaluation for Meniere's disease, workup for vertigo, as well as vestibular rehab therapies without much success. Please follow-up with your neurologist as soon as possible. Would recommend the use of a walker with a bench in the event you develop dizzy symptoms and are able to sit down until the symptoms passed. This may also be beneficial given your peripheral neuropathy. Please hold your donepezil until your able to discuss further with Neurology, as this may be contributing to your symptoms. Will require a carotid ultrasound. Please send a referral to the outpatient ultrasound department. Please attempt to schedule it for MondayApril 18 if possible. A TSH has been and is pending at the time of discharge. Please check your portal for results. Discharge orders & Medications Prescriptions: Continued levothyroxine 125 mcg tablet 125 mcg PO QAM Patient Comments: TAKE ONE(1) TABLET BY MOUTH ONCE DAILY on an empty stomach. Adult Aspirin EC Low Strength 81 mg 81 mg DAILY Antivert 25 mg 25 mg TID PRN (Reason: Dizziness) Rx Instructions: pt taking 1 tab daily during the day atorvastatin 20 mg 20 mg BEDTIME losartan 100 mg 100 mg BEDTIME Discontinued donepezil 5 mg 5 mg BEDTIME Follow up/Referrals: Shilpa Cuba ARNP [Primary Care Provider] - Discharge Health Status Multidrug resistant organism: No MDRO Diet/Activity/Treatments Diet: Diet as Tolerated and Regular Activity: As tolerated Catheter comment: N/A Oxygen: N/A Visit Report/Discharge Packet Instructions: DI for Syncope in Adults (Fainting), Combating Dizziness in Older Adults, DI for Dizziness-Nonvertigo Stand Alone Forms: Patient Portal/API, Stroke Signs & Symptoms Discharge Data Primary Care Provider: Shilpa Cuba Attending Provider: Austin Yeboah Admit Date/Time: 04/15/23 02:18 Quality VTE Deep Vein Thrombosis/Pulmonary Embolism Present on Admission: No
[2023-04-15 14:51] LABS: RBC Urine 0-1/HPF (0-5/HPF); WBC Urine 0-1/HPF (0-5/HPF); pH Urine UA 6.5 (4.5-8.0)
[2023-04-15 14:52] LABS: Amorphous Sediment Urine 2+; Bacteria Urine Occasional (0-1); Culture Indicated Urine Specimen Cultured
[2023-04-15 15:06] LABS: Squamous Epithelial Cell Urine None Seen (0-5/HPF)
[2023-04-15 15:28] LABS: TSH w/ Reflex to FT4 2.65 uIU/mL (0.47-4.68)
== END 2023-04-15 16:45 | disposition home or self-care (01) ==
LOC: ED 19:58 → AC 04-15 02:19
PROVIDERS: Family Medicine; Admitting Provider Internal Medicine; Emergency Provider Emergency Medicine; Family Provider Nurse Practitioner; PCP Nurse Practitioner; Referring Provider Emergency Medicine; Visit Provider Internal Medicine
DX: R55 Syncope and collapse (principal); I10 Essential (primary) hypertension; E03.9 Hypothyroidism, unspecified; R41.3 Other amnesia; W18.39XA Other fall on same level, initial encounter; F03.90 Unspecified dementia, unspecified severity, without behavioral disturbance, psychotic disturbance, mood disturbance, and anxiety; E78.5 Hyperlipidemia, unspecified; I35.0 Nonrheumatic aortic (valve) stenosis
CPT/HCPCS: 36415; 70450; 71045; 72125; 80053; 81001; 82550; 83690; 83735; 84443; 84484; 85025; 85610; 85730; 87086; 93005; 93010; 93306; 99284; G0378

== ENCOUNTER → 2023-04-21 13:06 | Outpatient (CLI) | payer MEDICARE, OTHER, SELFPAY ==
[2023-04-15 03:00] VITALS: BMI 28.3
--- NOTE | 2023-04-21 | DI.US.S_ITS ---
PROCEDURE: US CAROTID DOPPLER BI INDICATIONS: SYNCOPE AND COLLAPSE TECHNIQUE: Color and pulse Doppler interrogation was performed of both carotid systems, with image documentation and velocity measurements. COMPARISON: [facility], CT, CT HEAD/BRAIN WO CON, 04/14/2023, 22:52. FINDINGS: Stenosis calculations are based on SRU (Society of Radiologists in Ultrasound) criteria. The flow velocities and the arterial waveforms are normal within both carotid arterial systems. Minimal atherosclerotic plaque is seen on both sides. The estimated degree of internal carotid artery stenosis is less than 50%. Antegrade flow is confirmed within both vertebral arteries. IMPRESSION: No hemodynamically significant stenosis is seen. Dictated by: Lv Medina M.D. on 04/21/2023 at 13:21 Approved by: Lv Medina M.D. on 04/21/2023 at 13:22
== END ==
PROVIDERS: Family Provider Nurse Practitioner; PCP Family Medicine; Referring Provider Family Medicine; Visit Provider Family Medicine
DX: R55 Syncope and collapse (principal)
CPT/HCPCS: 93880

== ENCOUNTER → 2025-07-26 09:16 | Outpatient (CLI) | payer MEDICARE, OTHER, SELFPAY ==
--- NOTE | 2025-07-26 09:20 | DI.RAD.S_ITS ---
PROCEDURE: XR SHOULDER RT MIN 2V INDICATIONS: Please evaluate for Fx after fall, hx severe OA TECHNIQUE: 3 views of the shoulder were acquired. COMPARISON: None. FINDINGS: Bones: There is an irregular fracture seen involving the humeral neck, with moderate displacement. No glenohumeral dislocation is seen. Moderate to severe glenohumeral degenerative change is seen. The visualized ribs appear intact. Soft tissues: No suspicious soft tissue calcifications. IMPRESSION: Humeral neck fracture. Dictated by: Lv Medina M.D. on 07/26/2025 at 9:12 Approved by: Lv Medina M.D. on 07/26/2025 at 9:13
== END ==
PROVIDERS: Family Provider Nurse Practitioner; PCP Physician Assistant; Referring Provider Chiropractor; Visit Provider Chiropractor
DX: S42.211A Unspecified displaced fracture of surgical neck of right humerus, initial encounter for closed fracture (principal); S43.401A Unspecified sprain of right shoulder joint, initial encounter; W19.XXXA Unspecified fall, initial encounter
CPT/HCPCS: 73030